=== PATIENT | female | born 1990 | race Caucasian/White ===

== ENCOUNTER 2019-12-26 09:02 | Day surgery (SDC) | payer OTHER ==
[~2019-12-26] VITALS: Ht 170.2 cm; Wt 95.4 kg
[~2019-12-26 09:02] MED LIST: FENTANYL PF 250 MCG/5ML ONE; MIDAZOLAM 1 MG/ML, 2ML ONE; None per pt
[2019-12-26] MEDS ORDERED: BUPIVACAINE/PF-EPI 0.5% 1:200K ONE (09:14)
[2019-12-26] MEDS ORDERED: LACTATED RINGERS 1,000 ML IV SCH (09:15)
[2019-12-26] MEDS ORDERED: INDOCYANINE GREEN 25 MG VIAL IV STA (09:17)
[2019-12-26] MEDS ORDERED: INDOCYANINE GREEN 25 MG VIAL ONE (09:26)
[2019-12-26 09:48] LABS: HCG UR SG 1.033 (1.003-1.030)
[2019-12-26] MEDS ORDERED: LIDOCAINE 4%, 4 ML SYR/CANN TP ONE (10:20)
[2019-12-26] MEDS ORDERED: LIDOCAINE-MPF 2% ,5ML ONE (10:20)
[2019-12-26] MEDS ORDERED: OXYcodone 5 MG/5 ML ORAL.SOL UDC PO PRN ×2 (11:00→11:30)
[2019-12-26] MEDS ORDERED: PROMETHAZINE 25 MG SUPP PR PRN (11:00)
[2019-12-26] MEDS ORDERED: HYDROmorphone 2 MG/ML, 1ML IVPush PRN (11:00)
[2019-12-26] MEDS ORDERED: FENTANYL PF 100 MCG/2ML IV PRN (11:00)
[2019-12-26] MEDS ORDERED: ACETAMINOPHEN 325 MG TABLET PO PRN (11:00)
[2019-12-26] MEDS ORDERED: ONDANSETRON 2MG/ML, 2ML IV PRN (11:00)
[2019-12-26] MEDS ORDERED: PROMETHAZINE 12.5 MG SUPP PR PRN (11:00)
[2019-12-26] MEDS ORDERED: ONDANSETRON ODT 8 MG PO PRN (11:00)
[2019-12-26] MEDS ORDERED: NEOSTIGMINE 1 MG/ML, 10ML ONE ×2 (11:06)
[2019-12-26] MEDS ORDERED: CEFAZOLIN 1,000 MG ONE (11:06)
[2019-12-26] MEDS ORDERED: DEXAMETHASONE 4 MG/ML, 1ML ONE (11:06)
[2019-12-26] MEDS ORDERED: PROPOFOL 10 MG/ML, 20ML ONE (11:06)
[2019-12-26] MEDS ORDERED: ROCURONIUM 10MG/ML,5ML ONE (11:06)
[2019-12-26] MEDS ORDERED: ONDANSETRON 2MG/ML, 2ML ONE (11:06)
[2019-12-26] MEDS ORDERED: SUCCINYLCHOLINE 20 MG/ML, 10ML ONE (11:06)
[2019-12-26] MEDS ORDERED: GLYCOPYRROLATE 0.2MG/1ML, 5ML ONE ×2 (11:06)
[2019-12-26] MEDS ORDERED: KETOROLAC 30 MG/1 ML IVPush PRN (11:30)
[2019-12-26] MEDS ORDERED: ONDANSETRON 2MG/ML, 2ML IVPush PRN (11:30)
[2019-12-26] MEDS ORDERED: morphine SULFATE 10 MG/ML, 1ML IVPush PRN (11:30)
[2019-12-26] MEDS ORDERED: DIPHENHYDRAMINE 50 MG/ML, 1ML IVPush PRN (11:30)
[2019-12-26] MEDS ORDERED: ACETAMINOPHEN 650 MG/20.3 ML UDC ONE (11:39)
[2019-12-26] MEDS ORDERED: FENTANYL PF 100 MCG/2ML ONE (11:39)
[2019-12-26] MEDS ORDERED: KETOROLAC 30 MG/1 ML ONE (11:39)
[2019-12-26] MEDS ORDERED: OXYcodone 5 MG/5 ML ORAL.SOL UDC ONE (11:39)
== END 2019-12-26 14:05 | disposition home or self-care (01) ==
LOC: OUT 09:02
PROVIDERS: ATTEND Surgery
DX: K80.10 Calculus of gallbladder with chronic cholecystitis without obstruction (principal); K66.0 Peritoneal adhesions (postprocedural) (postinfection); Z88.0 Allergy status to penicillin; Z88.5 Allergy status to narcotic agent
CPT/HCPCS: 47562; 81025; 88304; J0690; J1100; J1885; J2250; J2405; J2704; J2710; J3010; S2900; J0330

== ENCOUNTER → 2021-04-22 | Outpatient (CLI) | payer OTHER ==
[~2021-04-22] MED LIST changes: -FENTANYL PF 250 MCG/5ML ONE; -MIDAZOLAM 1 MG/ML, 2ML ONE
== END | disposition home or self-care (01) ==
LOC: RAD 13:37
PROVIDERS: ATTEND Obstetrics & Gynecology
DX: Z34.82 Encounter for supervision of other normal pregnancy, second trimester (principal); Z3A.20 20 weeks gestation of pregnancy
CPT/HCPCS: 76805